=== PATIENT | male | born 1960 | race Caucasian/White ===

== ENCOUNTER 2017-07-08 13:10 | Emergency (ER) | payer OTHER ==
--- NOTE | 2017-07-08 14:25 | CT ---
CT cervical spine Technique: Multiple axial sections were obtained from above C1 inferiorly to the bottom of T1. Reconstructed sagittal and coronal images were obtained. Comparison: No prior cervical spine imaging. Findings: Mastoid sinuses and middle ear cavities appear clear. Posterior skull base is intact. Mild degenerative change is noted between the dens and anterior arch C1. Moderate disc space narrowing noted C5-C6 and C6-C7. Disc calcifications seen within the posterior disc at C3-C4. Anterior osteophytes are seen at C3-C4 through C6-C7. Posterior osteophytes are seen at C5-C6 and C6-C7. Degenerative spurring within the uncovertebral joints most prominent at C4-C5 and C5-C6 on both sides. No fracture is identified. Mild degenerative change is seen throughout the apophyseal joints. Mild right-sided neural foraminal stenosis is noted at C3-C4. Moderate right-sided neural foraminal stenosis is noted at C5-C6 with moderate to severe neural foraminal stenosis noted at C5-C6 on the left side. Moderate left-sided and right-sided neural foraminal stenosis is noted at C6-C7. Ligamentum nuchal calcification is seen. Impression: 1. Degenerative change as noted above. 2. Nothing acute is identified on CT study of the cervical spine. Diagnostic code #3
--- NOTE | 2017-07-08 14:25 | CT ---
Head CT Technique: Multiple axial sections through the brain were obtained. Intravenous contrast was not utilized. Comparison: No previous intracranial imaging. Findings: Ventricles along with basal cisterns and sulci over the convexities are within normal limits for the patient's age. No evidence of intracranial hemorrhage. Old lacunar infarct is noted within the left basal ganglia. No other abnormal parenchymal densities are seen. No midline shift or mass effect is seen. Mild mucosal thickening is noted within the inferior maxillary sinuses on both sides as well as ethmoid sinuses. No acute calvarial abnormality is seen. Impression: 1. Minimal sinus findings which are felt to be chronic. 2. Old lacunar infarct within left basal ganglia. 3. Nothing acute is appreciated on noncontrast head CT exam. Diagnostic code #2
[2017-07-08] MEDS ORDERED: Acetaminophen/HYDROcodone 325-5 MG Tab PO ONE (14:33)
--- NOTE | 2017-07-08 14:48 | CT ---
CT thoracic spine Technique: Multiple axial sections through the thoracic spine were obtained. Reconstructed sagittal and coronal images were reviewed. Findings: Degenerative spurring is noted throughout the lower cervical, thoracic and upper lumbar spine. Vertebral body heights are maintained. Mild scattered disc space narrowing is noted with several levels of vacuum phenomena. No fracture is seen. Visualized posterior ribs appear to be intact. No abnormal subluxation is seen. No bony central canal stenosis is seen. Scattered degenerative change within the apophyseal joints is noted. Neural foramina appear fairly well patent on the parasagittal images. Bony bridging is seen within several spinous processes within T4 and T5. Impression: 1. Diffuse degenerative change. Incidental bony bridging between T4 and T5 within the spinous processes. 2. Nothing acute is appreciated on CT study of the thoracic spine. Diagnostic code #2
--- NOTE | 2017-07-08 15:20 | EDM.PDOC ---
ED HPI GENERAL MEDICAL PROBLEM - General Chief Complaint: Back Pain or Injury Stated Complaint: FALL/HEAD INJURY Time Seen by Provider: 07/08/17 13:34 Source of Information: Reports: Patient, Other (Co worker) History Limitations: Reports: No Limitations - History of Present Illness INITIAL COMMENTS - FREE TEXT/NARRATIVE: The patient presents with a headache and upper back pain after a fall today at work. He slipped while climbing into a truck and landed on his head and upper back. He had no LOC. He has no neck pain but he has upper back pain and a headache. He has no numbness or weakness. He has no vision changes. He has no nausea or vomiting. He has no chest pain or abdominal pain. His hips and pelvis do not hurt. Onset: Sudden Duration: Hour(s): (This morning) Location: Reports: Head, Back (Upper back) Quality: Reports: Sharp Severity: Moderate Improves with: Reports: Immobilization Worsens with: Reports: Movement Context: Reports: Trauma (He fell 4 feet out of a truck) Associated Symptoms: Reports: Headaches. Denies: Chest Pain, Cough, Nausea/ Vomiting, Shortness of Breath Head Pain Score (Numeric/FACES): 4 Back Pain Score (Numeric/FACES): 8 - Related Data Allergies Allergy/AdvReac Type Severity Reaction Status Date / Time No Known Allergies Allergy Verified 07/08/17 13:11 Home Meds: Home Meds Cyclobenzaprine [Flexeril] 10 mg PO TID PRN #20 tab 07/08/17 [Rx] Hydrocodone/Acetaminophen [Hydrocodon-Acetaminophen 5-325] 1 - 2 each PO Q6HR PRN #20 tablet 07/08/17 [Rx] Past Medical History - Past Health History Medical/Surgical History: Denies Medical/Surgical History Social & Family History - Tobacco Use Smoking Status *Q: Current Every Day Smoker Years of Tobacco use: 40 Packs/Tins Daily: 1 - Recreational Drug Use Recreational Drug Use: No ED ROS GENERAL - Review of Systems Review Of Systems: See Below Constitutional: Reports: No Symptoms HEENT: Reports: No Symptoms Respiratory: Reports: No Symptoms Cardiovascular: Reports: No Symptoms Endocrine: Reports: No Symptoms GI/Abdominal: Reports: No Symptoms : Reports: No Symptoms Musculoskeletal: Reports: Back Pain Skin: Reports: No Symptoms Neurological: Reports: Headache ED EXAM, UPPER BACK/NECK PAIN - Physical Exam Exam: See Below Exam Limited By: No Limitations General Appearance: Alert, No Apparent Distress Eye Exam: Bilateral Eye: EOMI Ears Exam: Normal External Exam Nose Exam: Normal Inspection Head Exam: Other (Pain upon palpation to the back of the head) Neck Exam: Non-Tender, Normal Alignment, Normal Inspection Cardiovascular/Respiratory: Regular Rate, Rhythm, No M/R/G, Normal Peripheral Pulses, Normal Breath Sounds, No Respiratory Distress GI/Abdominal: Soft, Non-Tender, No Organomegaly, No Mass Back Exam: Other (Pain upon palpation to the thoracic spine. The pain is mid line and through the whole thoracic spien to the base of the cervical spine.) Course - Vital Signs Last Recorded V/S: Last Vital Signs Temp 98.5 F 07/08/17 13:12 Pulse 90 07/08/17 13:12 Resp 18 07/08/17 13:12 BP 153/93 H 07/08/17 13:12 Pulse Ox 97 07/08/17 13:12 - Orders/Labs/Meds Meds: Medications Discontinued Medications Generic Name Dose Route Start Last Admin Trade Name Amor PRN Reason Stop Dose Admin Hydrocodone Bitart/Acetaminophen 2 tab 07/08/17 14:33 07/08/17 14:36 [place] 325-5 Mg PO 07/08/17 14:34 2 tab ONETIME ONE Administration - Re-Assessments/Exams Free Text/Narrative Re-Assessment/Exam: 07/08/17 15:16 My nurse put a C-collar on. His CT of his thoracic spine shows diffuse degenerative change. Incidental bony bridging between T4 and T5 within the spinous processes. Nothing acute is appreciated on CT study of the thoracic spine. The CT of his head shows minimal sinus findings which are felt to be chronic. Old lacunar infarct within the left basal ganglia. Nothing acute is appreciated on noncontrast head CT exam. The CT of his cervical spine shows degenerative change as noted above. Nothing acute is identified on CT study of the cervical spine. He feels better. I removed the c-collar at 1510. I will discharge him home with a prescription for hydrocodone and flexeril. Departure - Departure Time of Disposition: 15:20 Disposition: Home, Self-Care 01 Condition: Good Clinical Impression: Fall Qualifiers: Encounter type: initial encounter Qualified Code(s): W19.XXXA - Unspecified fall, initial encounter Head injury Qualifiers: Encounter type: initial encounter Qualified Code(s): S09.90XA - Unspecified injury of head, initial encounter Thoracic myofascial strain Qualifiers: Encounter type: initial encounter Qualified Code(s): S29.019A - Strain of muscle and tendon of unspecified wall of thorax, initial encounter - Discharge Information Prescriptions: Hydrocodone/Acetaminophen [Hydrocodon-Acetaminophen 5-325] 1 - 2 each PO Q6HR PRN #20 tablet PRN Reason: Pain Cyclobenzaprine [Flexeril] 10 mg PO TID PRN #20 tab PRN Reason: Pain Referrals: PCP,None [Primary Care Provider] - Kati Whalen [Physician] - 1 Week Forms: ED Department Discharge, ED Return to Work/School Form Additional Instructions: Take motrin or aleve for pain. You may also take the percocet and flexeril for pain but do not drive or operate heavy machinery when taking them. Please return if you are worse.
== END 2017-07-08 15:52 | disposition home or self-care (01) ==
LOC: JD.ED 13:10
DX: S09.90XA Unspecified injury of head, initial encounter (principal); S29.019A Strain of muscle and tendon of unspecified wall of thorax, initial encounter; F17.210 Nicotine dependence, cigarettes, uncomplicated; V68.4XXA Person boarding or alighting a heavy transport vehicle injured in noncollision transport accident, initial encounter; Y92.89 Other specified places as the place of occurrence of the external cause; Y99.0 Civilian activity done for income or pay
CPT/HCPCS: 70450; 72125; 72128; 99284; A9270; 99283

== ENCOUNTER 2020-11-02 21:46 | Emergency (ER) | payer BC, OTHER ==
[2020-11-02] MEDS ORDERED: Cetirizine 1 MG/ML Solution ML 120 ML Bottle PO STA (22:27)
--- NOTE | 2020-11-02 22:33 | EDM.PDOC ---
ED HPI GENERAL MEDICAL PROBLEM - General Chief Complaint: Bite:Animal, Insect Stated Complaint: BUG BITE Time Seen by Provider: 11/02/20 21:58 Source of Information: Reports: Patient, Family () History Limitations: Reports: No Limitations - History of Present Illness INITIAL COMMENTS - FREE TEXT/NARRATIVE: Mr. Liu is a pleasant 60-year-old gentleman who now presents the ED with a painful lesion to the lateral aspect of his right shoulder. He states that he believes that he was bitten by an insect or spider last night. There is irritation to his lateral right shoulder this morning. He states that he showed his boss the site, and was told that there was a rash at that site. He continued to work all day, then, when he got home, he looked at the site in the mirror, seeing several large blisters. He took a photograph and sent it to his boss, who reported that the current status is much worse than it was this morning. The patient denies pruritus. No recent fever. He states that he has not done anything to treat the blisters. No prior similar symptoms. The patient denies chemical exposure. Here in the ED, the patient's initial BP is found to be elevated 178/80, otherwise, he is hemodynamically stable, afebrile, saturating 95% on room air. Prior to this morning, the patient denies having a recent fever, chills, sore throat, ear pain, nasal or sinus congestion, cough, dyspnea, chest pain, palpitations, nausea, vomiting, constipation, diarrhea, abdominal pain, urinary symptoms, recent weight gain or weight loss, recent bloody bowel movements or black bowel movements, recent joint aches, headaches, or rashes. The patient does not have a PCP. Right Arm Pain Score (Numeric/FACES): 5 - Related Data Allergies Allergy/AdvReac Type Severity Reaction Status Date / Time No Known Allergies Allergy Verified 11/02/20 21:58 Home Meds: Home Meds . [No Known Home Meds] 11/02/20 [History] Past Medical History Cardiovascular History: Reports: Hypertension (untreated) Respiratory History: Reports: Sleep Apnea (untreated) Genitourinary History: Reports: Renal Calculus Endocrine/Metabolic History: Reports: Obesity/BMI 30+ - Past Surgical History HEENT Surgical History: Reports: Oral Surgery (dental extractions) GI Surgical History: Reports: Appendectomy Male Surgical History: Reports: Kidney Stone Extraction Social & Family History - Tobacco Use Tobacco Use Status *Q: Current Every Day Tobacco User Years of Tobacco use: 46 Packs/Tins Daily: 1 Tobacco Use Comment: Started smoking at 14 yrs old - Caffeine Use Caffeine Use: Reports: Coffee - Alcohol Use Alcohol Use History: No - Recreational Drug Use Recreational Drug Use: Yes Drug Use in Last 12 Months: No Recreational Drug Type: Reports: Marijuana/Hashish (last smoked around 1989) - Living Situation & Occupation Living situation: Reports: , with Spouse Occupation: Employed (Hauls heavy equipment) ED ROS GENERAL - Review of Systems Review Of Systems: Comprehensive ROS is negative, except as noted in HPI. ED EXAM, ANIMAL BITE - Physical Exam Exam: See Below Exam Limited By: No Limitations General Appearance: Alert, WD/WN, No Apparent Distress Skin Exam: Other (There are a string of bullae extending approximately 4 to 5 cm to the lateral aspect of the patient's right shoulder. No surrounding erythema or swelling, and no associated calor.) Course - Vital Signs Last Recorded V/S: Last Vital Signs Temp 36.0 C L 11/02/20 21:54 Pulse 97 11/02/20 21:54 Resp 16 11/02/20 21:54 BP 178/80 H 11/02/20 21:54 Pulse Ox 95 11/02/20 21:54 - Orders/Labs/Meds Meds: Medications Discontinued Medications Generic Name Dose Route Start Last Admin Trade Name Freq PRN Reason Stop Dose Admin Cetirizine HCl 10 mg 11/02/20 22:27 11/02/20 22:43 Cetirizine 1 Mg/Ml Solution Ml 120 Ml Bottle PO 11/02/20 22:28 Not Given ONETIME STA - Re-Assessments/Exams Free Text/Narrative Re-Assessment/Exam: 11/02/20 22:28 As above, the patient developed some irritation on his upper lateral right arm this morning, with a minimal associated rash, but by this evening, he had several contiguous bullae to the area. He states that the area wilhelm, although he denies pruritus. No recent fever. He has not treated the lesion in any way. His presentation is most consistent with a local inflammatory reaction to a bite by an arthropod, i.e. an insect. Treatment includes a nonsedating antihistamine and ice packs. He should keep the area clean, and although the bullae will likely pop soon, he should not intentionally pop them. The patient declined an offer for referral to a PCP. Departure - Departure Time of Disposition: 22:31 Disposition: Home, Self-Care 01 Condition: Good Clinical Impression: Insect bite of upper arm with local reaction - Discharge Information *PRESCRIPTION DRUG MONITORING PROGRAM REVIEWED*: Not Applicable *COPY OF PRESCRIPTION DRUG MONITORING REPORT IN PATIENT CASANDRA: Not Applicable Instructions: Insect Bite, Adult, [id number] Referrals: PCP,None [Primary Care Provider] - Forms: ED Department Discharge Additional Instructions: You were seen in the emergency room after developing a blister-like rash to your upper right arm. Based on your history and physical examination, you are most likely suffering from a local inflammatory reaction to an insect bite. You have been started on the non-sedating antihistamine cetirizine (Zyrtec). Cetirizine is available [id number]. Take 1 tablet of cetirizine daily, starting tomorrow, , 11/03/2020. We also recommend that you apply an ice pack to the area for 15 minutes, at least 5 times a day. Keep the area clean with ordinary soap and water when you bathe. It is inevitable that the blisters will pop, however, do not intentionally pop them. You should expect resolution of the rash to take about 12 days. If any other problems, please do not hesitate to return to the ER. Sepsis Event Note (ED) - Evaluation Sepsis Screening Result: No Definite Risk - Focused Exam Vital Signs: Vital Signs Temp Pulse Resp BP Pulse Ox 11/02/20 21:54 36.0 C L 97 16 178/80 H 95
== END 2020-11-02 22:42 | disposition home or self-care (01) ==
LOC: JD.ED 21:46
DX: S40.861A Insect bite (nonvenomous) of right upper arm, initial encounter (principal); I10 Essential (primary) hypertension; E66.9 Obesity, unspecified; Z68.41 Body mass index [BMI] 40.0-44.9, adult; Z72.0 Tobacco use; W57.XXXA Bitten or stung by nonvenomous insect and other nonvenomous arthropods, initial encounter
CPT/HCPCS: 99282; A9270

== ENCOUNTER 2023-08-05 09:00 | Day surgery (SDC) | payer BC, OTHER ==
[~2023-08-05 09:00] MED LIST: Sodium Chloride 0.9% 10 ML Syringe FLUSH PRN; Sodium Chloride 0.9% 10 ML Syringe FLUSH SCH
[2023-08-05] MEDS: Lactated Ringers 1,000 ML IV SCH (09:10)
[2023-08-05] MEDS ORDERED: HYDROmorphone 0.5 MG/0.5 ML Syringe IVPUSH PRN (10:22)
[2023-08-05] MEDS ORDERED: fentaNYL 100 MCG/2 ML SDV IVPUSH PRN (10:22)
[2023-08-05] MEDS ORDERED: Ondansetron 4 MG/2 ML SDV IVPUSH PRN (10:22)
[2023-08-05] MEDS ORDERED: Propofol 200 MG/20 ML SDV ONE (10:28)
[2023-08-05] MEDS ORDERED: Midazolam 1 MG/ML 2 ML SDV ONE (10:28)
[2023-08-05] MEDS ORDERED: fentaNYL 100 MCG/2 ML SDV ONE (10:28)
[2023-08-05] MEDS ORDERED: Rocuronium 50 MG/5 ML Vial ONE (10:29)
[2023-08-05] MEDS ORDERED: Dexamethasone 4 MG/ML 5 ML MDV ONE (10:29)
[2023-08-05] MEDS ORDERED: Ondansetron 4 MG/2 ML SDV ONE (10:29)
[2023-08-05] MEDS ORDERED: Ropivacaine 0.5% 5 MG/ML 30 ML SDV ONE (10:30)
[2023-08-05] MEDS ORDERED: EPINEPHrine 1 MG/ML SDV ONE (10:59)
[2023-08-05] MEDS ORDERED: ceFAZolin 2 GM Vial ONE ×2 (11:19→11:33)
[2023-08-05] MEDS ORDERED: Phenylephrine 1% 10 MG/ML SDV ONE (11:45)
[2023-08-05] MEDS ORDERED: Lactated Ringers 1,000 ML IV ONE (12:00)
[2023-08-05] MEDS ORDERED: Sugammadex Sodium 200 MG/2 ML VIAL IV ONE (12:15)
[2023-08-05] MEDS: EPINEPHrine 1 MG/ML SDV ONE (13:56)
== END 2023-08-05 15:15 | disposition home or self-care (01) ==
LOC: JD.SDS 09:00
PROVIDERS: ATTEND Orthopaedic Surgery
DX: M75.121 Complete rotator cuff tear or rupture of right shoulder, not specified as traumatic (principal); M25.811 Other specified joint disorders, right shoulder; M75.21 Bicipital tendinitis, right shoulder; I10 Essential (primary) hypertension; E11.9 Type 2 diabetes mellitus without complications; E78.00 Pure hypercholesterolemia, unspecified; F17.210 Nicotine dependence, cigarettes, uncomplicated; Z79.84 Long term (current) use of oral hypoglycemic drugs; Z79.899 Other long term (current) drug therapy
CPT/HCPCS: 29826; 29827; C1713; J0171; J0690; J1100; J2250; J2371; J2405; J2704; J2795; J3010; J3490; J7120; 01630; 64415